=== PATIENT | female | born 1990 | race Caucasian/White ===

== ENCOUNTER 2018-07-16 19:29 | Emergency (ER) | payer OTHER ==
--- NOTE | 2018-07-16 20:02 | Emergency Department Report ---
Chief Complaint: Vaginal Bleeding Stated Complaint: VAGINAL BLEEDING Time Seen by Provider: 07/16/18 20:00 - HPI History of Present Illness: This is a 27 y.o. female that presents to the ER with vaginal bleeding for 2 months. Passing large clots. A1 - Exam Vital Signs: Vital Signs 07/16/18 20:01 Temperature 98.2 F Pulse Rate 134 H Respiratory 18 Rate Blood Pressure 95/60 O2 Sat by Pulse 100 Oximetry MSE screening note: Focused history and physical exam performed. Due to findings the following was ordered: This initial assessment/diagnostic orders/clinical plan/treatment(s) is/are subject to change based on patient's health status, clinical progression and re- assessment by fellow clinical providers in the ED. Further treatment and workup at subsequent clinical providers discretion. Patient/guardians urged not to elope from the ED as their condition may be serious if not clinically assessed and managed. Initial orders include: 1- Patient sent to Main ED for further evaluation and treatment ED Disposition for MSE Condition: Stable
[2018-07-16] MEDS ORDERED: NACL 0.9% 1000 ML 1,000 ML IV ONE (20:27)
[2018-07-16 20:37] LABS: Basophils # (Auto) 0.1 K/mm3 (0.0-0.1); Basophils % (Auto) 0.5 % (0.0-1.8); Eosinophils # (Auto) 0.1 K/mm3 (0.0-0.4); Eosinophils % (Auto) 0.6 % (0.0-4.3); Hematocrit 22.6 % (30.3-42.9); Hemoglobin 7.2 gm/dl (10.1-14.3); Lymphocytes % (Auto) 16.8 % (13.4-35.0); Mean Corpuscular HGB Conc 32 % (30-34); Mean Corpuscular Volume 82 fl (79-97); Monocytes # (Auto) 0.5 K/mm3 (0.0-0.8); Monocytes % (Auto) 4.6 % (0.0-7.3); Platelet Count 390 K/mm3 (140-440); Red Blood Count 2.74 M/mm3 (3.65-5.03); Red Cell Distribution Width 14.3 % (13.2-15.2)
[2018-07-16] MEDS ORDERED: NACL 0.9% 500 ML 500 ML IV ONE (21:01)
[2018-07-16 21:23] LABS: % Iron Saturation 2.93 %
[2018-07-16] MEDS ORDERED: NACL 0.9% 500 ML 500 ML ONE (23:37)
--- NOTE | 2018-07-16 23:52 | Ultrasound Report ---
PROCEDURE: US PELVIC COMPLETE TECHNIQUE: Real-time transabdominal sonography in multiple planes of the pelvis was performed. The p elvic structures were not optimally visualized. Transvaginal sonography was then performed to better evaluate the structures and/or abnormalities described below with image documentation. Grayscale, col or flow Doppler imaging, and velocity spectral waveform analysis of the ovaries was employed (duplex imaging). HISTORY: vaginal bleeding COMPARISONS: None . FINDINGS: UTERUS Size: 7.3 x 4.3 x 4.8 cm. Endometrial thickness: 19.9 mm.The endometrium is thickened and heterogeneous and highly vascular. Th ere is no obvious mass. There are pockets of fluid in the endometrial cavity. Clinical correlation kwok ggested. Orientation: anteverted. Cervix: Normal. Fibroids/masses: None. RIGHT Ovary: 3.6 x 2.1 x 3.4 cm. Appearance: Normal. There is a 13 mm cyst. Doppler images: Normal spectral waveforms and color flow images of the arterial inflow and venous out flow.. LEFT Ovary: 3.3 x 2.3 x 2.9 cm. Appearance: Normal. There is a 14 mm cyst. Doppler images: Normal spectral waveforms and color flow images of the arterial inflow and venous out flow.. Pelvic fluid: There is fluid in the pelvic cul-de-sac.. IMPRESSION: The endometrium is thickened and heterogeneous and highly vascular. There is no obvious mass. There are pockets of fluid in the endometrial cavity. Clinical correlation suggested. There is nonspecific free pelvic fluid. There are cystic follicles in the ovaries. This document is electronically signed by Martin Lcuero MD., Jul 16 2018 11:50:27 PM ET
--- NOTE | 2018-07-16 23:53 | Ultrasound Report ---
PROCEDURE: US TRANSVAGINAL TECHNIQUE: Real-time transvaginal sonography in multiple planes of the pelvis was performed. The pel janice structures were not optimally visualized. Transvaginal sonography was then performed to better ev aluate the structures and/or abnormalities described below with image documentation. Grayscale, color flow Doppler imaging, and velocity spectral waveform analysis of the ovaries was employed (duplex im aging). HISTORY: vaginal bleeding COMPARISONS: None . FINDINGS: UTERUS Size: 7.3 x 4.3 x 4.8 cm. Endometrial thickness: 19.9 mm.The endometrium is thickened and heterogeneous and highly vascular. Th ere is no obvious mass. There are pockets of fluid in the endometrial cavity. Clinical correlation kwok ggested. Orientation: anteverted. Cervix: Normal. Fibroids/masses: None. RIGHT Ovary: 3.6 x 2.1 x 3.4 cm. Appearance: Normal. There is a 13 mm cyst. Doppler images: Normal spectral waveforms and color flow images of the arterial inflow and venous out flow.. LEFT Ovary: 3.3 x 2.3 x 2.9 cm. Appearance: Normal. There is a 14 mm cyst. Doppler images: Normal spectral waveforms and color flow images of the arterial inflow and venous out flow.. Pelvic fluid: There is fluid in the pelvic cul-de-sac.. IMPRESSION: The endometrium is thickened and heterogeneous and highly vascular. There is no obvious mass. There are pockets of fluid in the endometrial cavity. Clinical correlation suggested. There is nonspecific free pelvic fluid. There are cystic follicles in the ovaries. This document is electronically signed by Martin Lucero MD., Jul 16 2018 11:51:25 PM ET
--- NOTE | 2018-07-17 00:30 | Emergency Department Report ---
ED Female HPI - General Chief complaint: Vaginal Bleeding Stated complaint: VAGINAL BLEEDING Time Seen by Provider: 07/16/18 20:00 Source: patient Mode of arrival: Wheelchair Limitations: No Limitations - History of Present Illness Initial comments: 27-year-old female with no significant past medical history presents to Hospital with complaints of vaginal bleeding 2 months. Patient reports that she typically has a menstrual cycle monthly although it is irregular. Recently the bleeding has worsened. Today patient has used 7-8 pads. Suprapubic cramping reported. Patient has had history of heavy vaginal bleeding in the past but she was not evaluated and did not require a blood transfusion. She complains of generalized fatigue and weakness. - Related Data Previous Rx's Medication Instructions Recorded Last Taken Type Docusate Sodium [Colace] 100 mg PO BID PRN #20 capsule 07/17/18 Unknown Rx Ferrous Sulfate [Ferrous Sulfate 324 mg PO DAILY #30 tablet. 07/17/18 Unknown Rx 324 MG] medroxyPROGESTERone ACETATE 10 mg PO QDAY #10 tablet 07/17/18 Unknown Rx [Provera] Allergies Allergy/AdvReac Type Severity Reaction Status Date / Time No Known Allergies Allergy Verified 07/16/18 19:37 ED Review of Systems ROS: Stated complaint: VAGINAL BLEEDING Other details as noted in HPI Comment: All other systems reviewed and negative ED Past Medical Hx - Past Medical History Previous Medical History?: No Additional medical history: x1 - Surgical History Past Surgical History?: No - Social History Smoking Status: Never Smoker - Medications Home Medications: Home Medications Medication Instructions Recorded Confirmed Last Taken Type Docusate Sodium [Colace] 100 mg PO BID PRN #20 capsule 07/17/18 Unknown Rx Ferrous Sulfate [Ferrous Sulfate 324 mg PO DAILY #30 tablet. 07/17/18 Unknown Rx 324 MG] medroxyPROGESTERone ACETATE 10 mg PO QDAY #10 tablet 07/17/18 Unknown Rx [Provera] ED Physical Exam - General Limitations: No Limitations - Other Other exam information: General: No limitations, patient is alert in no acute distress Head exam: Atraumatic, normocephalic Eyes exam: Normal appearance, pale conjunctiva ENT: Moist mucous membrane, normal oropharynx Neck exam: Normal inspection, full range of motion, no meningismus nontender Respiratory exam: Clear to auscultation bilateral, no wheezes, rales, crackles Cardiovascular: Normal rate and rhythm, heart rate in the 80s to 90s at rest Abdomen: Soft, nondistended, and nontender, with normal bowel sounds, no rebound, or guarding Extremity: Full range of motion normal inspection no deformity Back: Normal Inspection, full range of motion, no tenderness Neurologic: Alert, oriented x3, cranial nerves intact, no motor or sensory deficit Psychiatric: normal affect, normal mood Skin: By mouth skin ED Course Vital Signs 07/16/18 07/16/18 07/16/18 19:37 20:01 20:45 Temperature 98.2 F 98.2 F Pulse Rate 95 H 134 H 84 Respiratory 18 18 13 Rate Blood Pressure 95/60 95/60 81/58 O2 Sat by Pulse 100 100 100 Oximetry 07/16/18 07/16/18 07/16/18 21:15 21:31 21:45 Temperature Pulse Rate 85 91 H Respiratory 10 L 17 Rate Blood Pressure 99/59 99/59 99/59 O2 Sat by Pulse 100 100 100 Oximetry 07/16/18 07/16/18 07/16/18 23:09 23:15 23:31 Temperature Pulse Rate 88 92 H 85 Respiratory 18 19 18 Rate Blood Pressure 90/59 90/59 90/59 O2 Sat by Pulse 100 100 100 Oximetry 07/16/18 07/16/18 07/17/18 23:45 23:49 00:00 Temperature 98.2 F 98.3 F Pulse Rate 87 88 91 H Respiratory 15 15 13 Rate Blood Pressure 96/48 96/48 94/53 O2 Sat by Pulse 100 100 100 Oximetry 07/17/18 00:15 Temperature 98.1 F Pulse Rate 84 Respiratory 15 Rate Blood Pressure 101/60 O2 Sat by Pulse 100 Oximetry - Consultations Consultation #1: 07/17/18 00:36 case d/w Kaity hammerer helper for Dr berrios. informed of results and plan for transfusion, iron tabs, and provera. ED Medical Decision Making - Lab Data Result diagrams: 07/16/18 20:14 - Radiology Data Radiology results: report reviewed PROCEDURE: US TRANSVAGINAL TECHNIQUE: Real-time transvaginal sonography in multiple planes of the pelvis was performed. The pelvic structures were not optimally visualized. Transvaginal sonography was then performed to better evaluate the structures and/or abnormalities described below with image documentation. Grayscale, color flow Doppler imaging, and velocity spectral waveform analysis of the ovaries was employed (duplex imaging). HISTORY: vaginal bleeding COMPARISONS: None . FINDINGS: UTERUS Size: 7.3 x 4.3 x 4.8 cm. Endometrial thickness: 19.9 mm.The endometrium is thickened and heterogeneous and highly vascular. There is no obvious mass. There are pockets of fluid in the endometrial cavity. Clinical correlation suggested. Orientation: anteverted. Cervix: Normal. Fibroids/masses: None. RIGHT Ovary: 3.6 x 2.1 x 3.4 cm. Appearance: Normal. There is a 13 mm cyst. Doppler images: Normal spectral waveforms and color flow images of the arterial inflow and venous outflow.. LEFT Ovary: 3.3 x 2.3 x 2.9 cm. Appearance: Normal. There is a 14 mm cyst. Doppler images: Normal spectral waveforms and color flow images of the arterial inflow and venous outflow.. Pelvic fluid: There is fluid in the pelvic cul-de-sac.. IMPRESSION: The endometrium is thickened and heterogeneous and highly vascular. There is no obvious mass. There are pockets of fluid in the endometrial cavity. Clinical correlation suggested. There is nonspecific free pelvic fluid. There are cystic follicles in the ovaries. PROCEDURE: US PELVIC COMPLETE TECHNIQUE: Real-time transabdominal sonography in multiple planes of the pelvis was performed. The pelvic structures were not optimally visualized. Transvaginal sonography was then performed to better evaluate the structures and/or abnormalities described below with image documentation. Grayscale, color flow Doppler imaging, and velocity spectral waveform analysis of the ovaries was employed (duplex imaging). HISTORY: vaginal bleeding COMPARISONS: None . FINDINGS: UTERUS Size: 7.3 x 4.3 x 4.8 cm. Endometrial thickness: 19.9 mm.The endometrium is thickened and heterogeneous and highly vascular. There is no obvious mass. There are pockets of fluid in the endometrial cavity. Clinical correlation suggested. Orientation: anteverted. Cervix: Normal. Fibroids/masses: None. RIGHT Ovary: 3.6 x 2.1 x 3.4 cm. Appearance: Normal. There is a 13 mm cyst. Doppler images: Normal spectral waveforms and color flow images of the arterial inflow and venous outflow.. LEFT Ovary: 3.3 x 2.3 x 2.9 cm. Appearance: Normal. There is a 14 mm cyst. Doppler images: Normal spectral waveforms and color flow images of the arterial inflow and venous outflow.. Pelvic fluid: There is fluid in the pelvic cul-de-sac.. IMPRESSION: The endometrium is thickened and heterogeneous and highly vascular. There is no obvious mass. There are pockets of fluid in the endometrial cavity. Clinical correlation suggested. There is nonspecific free pelvic fluid. There are cystic follicles in the ovaries. - Medical Decision Making Menometrorrhagia sx anemia due to iron deficiency and acute blood loss tx with 1 ns and 1 UPRBC plan to d/c on ferrous sulfate and provera close personal lines sales rep f/u advised case d/w PUMP ATTENDANT pt has a f/u apt scheduled with her personal lines sales rep (not affiliated) on the . pt provided copy of labs and US for f/u visit - Differential Diagnosis menorrhagia, DUB, miscarriage, anemia, fibroids Critical Care Time: No Critical care attestation.: If time is entered above; I have spent that time in minutes in the direct care of this critically ill patient, excluding procedure time. ED Disposition Clinical Impression: Menometrorrhagia, Iron deficiency anemia, Encounter for blood transfusion Disposition: TO HOME OR SELFCARE Is pt being admited?: No Does the pt Need Aspirin: No Condition: Stable Instructions: Iron Deficiency Anemia (ED), Menorrhagia (ED), Blood Transfusion Reactions (ED) Additional Instructions: Take the medication as prescribed. It is very important that you follow up with a PUMP ATTENDANT doctor provided or the PUMP ATTENDANT doctor of your choice. Return if symptoms worsen as indicated by your discharge instructions. You received 1 unit of Blood in the emergency department. Take a copy of the labs and ultrasound report provided to your follow up visit. Prescriptions: Docusate Sodium [Colace] 100 mg PO BID PRN #20 capsule PRN Reason: Constipation Ferrous Sulfate [Ferrous Sulfate 324 MG] 324 mg PO DAILY #30 tablet. medroxyPROGESTERone ACETATE [Provera] 10 mg PO QDAY #10 tablet Referrals: [facility] [Provider Group] - 2-3 Days (PUMP ATTENDANT doctor ) your, personal lines sales rep [Other] - 3-5 Days
[2018-07-17 01:27] VITALS: BP 104/60
== END 2018-07-17 02:44 | disposition home or self-care (01) ==
LOC: ED 19:29
DX: N92.0 Excessive and frequent menstruation with regular cycle (principal); D50.9 Iron deficiency anemia, unspecified
CPT/HCPCS: 36415; 36430; 76830; 76856; 83550; 84702; 85025; 86850; 86900; 86901; 86920; 96360; 99284; J7030; J7040; P9016